=== PATIENT | female | born 1945 | race Caucasian/White ===

== ENCOUNTER 2022-03-11 11:21 | Outpatient (CLI) | payer MEDICARE, OTHER ==
[2022-03-11 13:25] LABS: Mean Corpuscular HGB CONC 31.7 g/dL (32.0-36.0); Mean Corpuscular Hemoglobin 32.3 pg (27.0-33.0); Mean Corpuscular Volume 101.6 fl (81.6-98.3); Mean Platelet Volume 9.1 fl (7.4-10.4); Platelet Count 287 10x3/uL (150-450); RBC Distribution Width 16.4 % (11.5-14.5); White Blood Cell (WBC) Count 10.1 10x3/uL (3.5-10.5)
[2022-03-11 13:56] LABS: Anion Gap 19 mmol/L (10-20); BUN (Urea Nitrogen) 60 mg/dL (9.8-20.1); Calc. Creatinine Clearance 0 mL/min (70-130); Calcium 9.9 mg/dL (7.8-10.44); Carbon Dioxide 29 mmol/L (23-31); Chloride 95 mmol/L (98-107); Estimated GFR 8; Glucose 135 mg/dL (83-110); Potassium 5.2 mmol/L (3.5-5.1); Sodium 138 mmol/L (136-145)
== END 2022-03-11 11:22 | disposition home or self-care (01) ==
LOC: LABBT 11:21
PROVIDERS: ATTEND Thoracic Surgery (Cardiothoracic Vascular Surgery)
DX: Z01.812 Encounter for preprocedural laboratory examination (principal); I73.9 Peripheral vascular disease, unspecified
CPT/HCPCS: 80048; 85027

== ENCOUNTER 2022-03-12 09:55 | Day surgery (SDC) | payer MEDICARE, OTHER ==
[2022-03-11 08:53] VITALS: BMI 29.0
[2022-03-12] MEDS ORDERED: Midazolam HCl 2 mg/2 ml Vial ONE (11:01)
[2022-03-12] MEDS ORDERED: Lidocaine 1% (PF) 30 ML VIAL ONE (11:02)
[2022-03-12] MEDS ORDERED: FENTANYL 50 MCG/ML 1 ML VIAL ONE (11:02)
[2022-03-12] MEDS ORDERED: Heparin 10,000 UNITS/ 10 ML VIAL ONE (11:10)
[2022-03-12] MEDS ORDERED: hydrALAZINE 20 MG/ML VIAL ONE (13:54)
== END 2022-03-12 16:43 | disposition home or self-care (01) ==
LOC: SDC 09:55
PROVIDERS: ATTEND Thoracic Surgery (Cardiothoracic Vascular Surgery)
PROC: 047K3Z1 Dilation of Right Femoral Artery using Drug-Coated Balloon, Percutaneous Approach (ICD-10-PCS; principal; 2022-03-12)
DX: E11.51 Type 2 diabetes mellitus with diabetic peripheral angiopathy without gangrene (principal); I13.2 Hypertensive heart and chronic kidney disease with heart failure and with stage 5 chronic kidney disease, or end stage renal disease; E11.22 Type 2 diabetes mellitus with diabetic chronic kidney disease; N18.6 End stage renal disease; I50.1 Left ventricular failure, unspecified; I25.10 Atherosclerotic heart disease of native coronary artery without angina pectoris; K21.9 Gastro-esophageal reflux disease without esophagitis; M10.9 Gout, unspecified; Z86.16 Personal history of COVID-19; Z87.891 Personal history of nicotine dependence; Z79.4 Long term (current) use of insulin; Z79.52 Long term (current) use of systemic steroids; Z79.82 Long term (current) use of aspirin; Z79.890 Hormone replacement therapy; Z79.899 Other long term (current) drug therapy; Z88.1 Allergy status to other antibiotic agents; Z88.8 Allergy status to other drugs, medicaments and biological substances; Z91.041 Radiographic dye allergy status; Z99.2 Dependence on renal dialysis
CPT/HCPCS: 36247; 36416; 37224; C1725; C1760; C1769; C1887; C1894; J0360; J1644; J2001; J2250; J3010

== ENCOUNTER 2022-03-20 11:07 | Inpatient (IN) | payer MEDICARE, OTHER ==
[2022-03-20] MEDS ORDERED: Heparin 10,000 UNITS/ 10 ML VIAL ONE (11:50)
[2022-03-20 13:54] LABS: #Basophils 0.1 thou/uL (0.0-0.2); #Eosinphils 0.1 thou/uL (0.0-0.7); #Lymphocytes 1.2 thou/uL (1.20-3.40); #Monocytes 1.5 thou/uL (0.11-0.59); #Neutrophils 13.6 thou/uL (1.40-6.50); %Basophils 0.4 % (0.0-1.0); %Eosinophils 0.8 % (0.0-10.0); %Lymphocytes 7.1 % (21.0-51.0); %Monocytes 9.2 % (0.0-10.0); %Neutrophils 82.4 % (42.0-75.0); Hemoglobin 9.8 g/dL (12.0-16.0); Mean Corpuscular HGB CONC 32.4 g/dL (32.0-36.0); Mean Corpuscular Hemoglobin 32.9 pg (27.0-31.0); Mean Platelet Volume 6.8 fL (7.4-10.4); Platelet Count 256 10x3/uL (130-400); Red Blood Cell (RBC) Count 2.98 mill/uL (4.20-5.40); White Blood Cell (WBC) Count 16.5 10x3/uL (4.8-10.8)
[2022-03-20 14:28] LABS: ALT (SGPT) 10 U/L (8-55); AST (SGOT) 12 U/L (5-34); Albumin 3.6 g/dL (3.4-4.8); Alkaline Phosphatase 91 U/L (40-110); Anion Gap 17 mmol/L (10-20); BUN (Urea Nitrogen) 57 mg/dL (9.8-20.1); Bilirubin, Total 0.6 mg/dL (0.2-1.2); Calc. Creatinine Clearance 0 mL/min (70-130); Calcium 9.4 mg/dL (7.8-10.44); Carbon Dioxide 27 mmol/L (23-31); Chloride 92 mmol/L (98-107); Estimated GFR 7; Globulin 3.5 g/dL (2.4-3.5); Glucose 231 mg/dL (83-110); Potassium 5.3 mmol/L (3.5-5.1); Protein, Total 7.1 g/dL (5.8-8.1); Sodium 131 mmol/L (136-145)
[2022-03-20 14:51] LABS: Bilirubin Negative (Negative); Blood, Urine Trace (Negative); Clarity Clear (Clear); Glucose, Urine (Dipstick) 150 mg/dL (Negative); Ketone, Urine Negative (Negative); Leukocyte Negative Leu/uL (Negative); Nitrite Negative (Negative); Protein, Urine (Dipstick) 300 mg/dL (Neg-Trace); Specific Gravity, Urine 1.016 (1.002-1.036); Squamous Epithelial None Seen HPF (0-3); Urobilinogen Normal mg/dL (Less than 2)
[2022-03-20 14:52] LABS: Bacteria/HPF 1+ HPF (None Seen)
[2022-03-20] MEDS ORDERED: Cefepime 2 GM VIAL ONE (16:06)
[2022-03-20] MEDS ORDERED: Ondansetron PF 4 MG/2 ML Vial IVP PRN (16:08)
[2022-03-20] MEDS ORDERED: Dextrose 50% Abboject 50 ML SYRINGE SLOW IVP PRN (16:08)
[2022-03-20] MEDS ORDERED: traMADol HCl 50 MG TAB PO PRN (16:08)
[2022-03-20] MEDS ORDERED: Dextrose 5% in Water 1,000 ML IV PRN (16:08)
[2022-03-20 16:20] LABS: HBSAB Concentration Less than 8.00 mIU/mL; HBSAg Index 0.28 S/CO (0-0.99); Hep B Core Total Ab Non-Reactive (NonReactive); Hep B Core Total Index 0.06 S/CO (0-0.79); Hep B Surf AB Non-Reactive (NonReactive); Hep B Surf Ag Non-Reactive S/CO (NonReactive); Hep C IgG Ab Non-Reactive (NonReactive); Hep C Index 0.05 S/CO (0-0.79)
[2022-03-20] MEDS: Carvedilol 6.25 MG TAB PO SCH (18:09)
[2022-03-20] MEDS: Calcium Acetate 667 MG CAP PO SCH (18:09)
[2022-03-20] MEDS ORDERED: Vancomycin Diaylsis Sliding Scale (Wt 71-99) FS SCH (18:30)
[2022-03-20] MEDS ORDERED: VANCOMYCIN 2 GRAM/500 ML BAG 2 GM in Premix Bag 1 BAG IVPB SCH (18:30)
[2022-03-20] MEDS: Gabapentin 400 MG CAP PO SCH (20:50)
[2022-03-20] MEDS ORDERED: Cefepime 1 GM in Sodium Chloride 0.9% 100 ML IVPB SCH (21:00)
[2022-03-20 21:10] VITALS: BMI 29.5
[2022-03-20] MEDS: Morphine 2 MG/ML VIAL SLOW IVP PRN (21:18)
[2022-03-21 04:29] LABS: #Basophils 0.1 thou/uL (0.0-0.2); #Eosinphils 0.2 thou/uL (0.0-0.7); #Lymphocytes 1.2 thou/uL (1.20-3.40); #Monocytes 1.2 thou/uL (0.11-0.59); #Neutrophils 9.5 thou/uL (1.40-6.50); %Basophils 0.5 % (0.0-1.0); %Eosinophils 1.7 % (0.0-10.0); %Lymphocytes 9.5 % (21.0-51.0); %Monocytes 9.6 % (0.0-10.0); %Neutrophils 78.7 % (42.0-75.0); Hemoglobin 9.8 g/dL (12.0-16.0); Mean Corpuscular HGB CONC 31.9 g/dL (32.0-36.0); Mean Corpuscular Hemoglobin 32.7 pg (27.0-31.0); Mean Platelet Volume 6.9 fL (7.4-10.4); Platelet Count 239 10x3/uL (130-400); RBC Distribution Width 14.9 % (11.5-14.5); Red Blood Cell (RBC) Count 3.01 mill/uL (4.20-5.40); White Blood Cell (WBC) Count 12.1 10x3/uL (4.8-10.8)
[2022-03-21 04:57] LABS: Anion Gap 14 mmol/L (10-20); BUN (Urea Nitrogen) 24 mg/dL (9.8-20.1); Calc. Creatinine Clearance 17 mL/min (70-130); Calcium 9.4 mg/dL (7.8-10.44); Carbon Dioxide 27 mmol/L (23-31); Chloride 97 mmol/L (98-107); Estimated GFR 12; Glucose 155 mg/dL (83-110); Potassium 4.4 mmol/L (3.5-5.1); Sodium 134 mmol/L (136-145)
[2022-03-21] MEDS: Levothyroxine Sodium 88 MCG TAB PO SCH (05:17)
[2022-03-21] MEDS: Morphine 2 MG/ML VIAL SLOW IVP PRN (09:11)
[2022-03-21] MEDS: Calcium Acetate 667 MG CAP PO SCH ×3 (09:18→18:25)
[2022-03-21] MEDS: Gabapentin 100 MG CAP PO SCH (09:19)
[2022-03-21] MEDS: Furosemide 80 MG TAB PO SCH (09:19)
[2022-03-21] MEDS: Carvedilol 6.25 MG TAB PO SCH ×2 (09:20→18:25)
[2022-03-21] MEDS: Aspirin 81 mg Enteric Coated Tablet PO SCH (09:21)
[2022-03-21] MEDS: Sertraline 25 MG TAB PO SCH (09:21)
[2022-03-21] MEDS ORDERED: oxyCODONE 5 MG TAB PO PRN (12:04)
[2022-03-21] MEDS: oxyCODONE 5 MG TAB PO PRN (12:37)
[2022-03-21] MEDS ORDERED: Non-Formulary Item 1 EACH (Tizanidine Hcl [Tizanidine Hcl] 2 MG Tablet) PO SCH (14:00)
[2022-03-21] MEDS: tiZANidine HCl 4 MG TAB PO SCH ×2 (15:25→21:20)
[2022-03-21] MEDS: traMADol HCl 50 MG TAB PO SCH (21:19)
[2022-03-21] MEDS: Gabapentin 400 MG CAP PO SCH (21:20)
[2022-03-21] MEDS: Cefepime 0.5 GM, Admixture Fee 1 EACH in Sodium Chloride 0.9% 100 ML IVPB SCH (21:23)
[2022-03-22] MEDS: Levothyroxine Sodium 88 MCG TAB PO SCH (05:37)
[2022-03-22] MEDS: tiZANidine HCl 4 MG TAB PO SCH ×3 (05:37→21:40)
[2022-03-22] MEDS: HumaLOG 300 UNITS/3 ML VIAL SC PRN (05:53)
[2022-03-22] MEDS: Gabapentin 100 MG CAP PO SCH (08:59)
[2022-03-22] MEDS: Furosemide 80 MG TAB PO SCH (08:59)
[2022-03-22] MEDS: Calcium Acetate 667 MG CAP PO SCH ×3 (08:59→17:13)
[2022-03-22] MEDS: Sertraline 25 MG TAB PO SCH (09:00)
[2022-03-22] MEDS: Carvedilol 6.25 MG TAB PO SCH ×2 (09:01→17:15)
[2022-03-22] MEDS: Aspirin 81 mg Enteric Coated Tablet PO SCH (09:01)
[2022-03-22] MEDS: traMADol HCl 50 MG TAB PO SCH ×2 (09:05→21:38)
[2022-03-22] MEDS: oxyCODONE 5 MG TAB PO PRN (16:34)
[2022-03-22] MEDS: Cefepime 0.5 GM, Admixture Fee 1 EACH in Sodium Chloride 0.9% 100 ML IVPB SCH (21:37)
[2022-03-22] MEDS: EPOETIN ALFA-EPBX (ESRD) 10,000 UNIT/ML VIAL SC SCH (21:40)
[2022-03-22] MEDS: Gabapentin 400 MG CAP PO SCH (21:40)
[2022-03-23] MEDS: oxyCODONE 5 MG TAB PO PRN ×2 (00:50→15:28)
[2022-03-23] MEDS: Acetaminophen 325 MG TAB PO PRN (03:49)
[2022-03-23] MEDS: tiZANidine HCl 4 MG TAB PO SCH ×3 (06:45→21:50)
[2022-03-23] MEDS: Levothyroxine Sodium 88 MCG TAB PO SCH (06:45)
[2022-03-23 07:09] LABS: #Basophils 0.1 thou/uL (0.0-0.2); #Eosinphils 0.3 thou/uL (0.0-0.7); #Lymphocytes 1.3 thou/uL (1.20-3.40); #Monocytes 0.8 thou/uL (0.11-0.59); %Basophils 0.7 % (0.0-1.0); %Eosinophils 2.9 % (0.0-10.0); %Lymphocytes 13.9 % (21.0-51.0); %Neutrophils 74.5 % (42.0-75.0); Hemoglobin 9.5 g/dL (12.0-16.0); Mean Corpuscular HGB CONC 31.5 g/dL (32.0-36.0); Mean Corpuscular Hemoglobin 32.8 pg (27.0-31.0); Mean Platelet Volume 6.5 fL (7.4-10.4); Platelet Count 252 10x3/uL (130-400); RBC Distribution Width 14.4 % (11.5-14.5); White Blood Cell (WBC) Count 9.4 10x3/uL (4.8-10.8)
[2022-03-23 07:27] LABS: Anion Gap 18 mmol/L (10-20); BUN (Urea Nitrogen) 35 mg/dL (9.8-20.1); Calc. Creatinine Clearance 13 mL/min (70-130); Carbon Dioxide 23 mmol/L (23-31); Chloride 98 mmol/L (98-107); Potassium 4.6 mmol/L (3.5-5.1); Sodium 134 mmol/L (136-145)
[2022-03-23 07:28] LABS: Calcium 9.6 mg/dL (7.8-10.44); Estimated GFR 9; Glucose 151 mg/dL (83-110)
[2022-03-23] MEDS: traMADol HCl 50 MG TAB PO SCH ×2 (09:12→20:08)
[2022-03-23] MEDS ORDERED: Heparin 10,000 UNITS/ 10 ML VIAL ONE (10:08)
[2022-03-23] MEDS: Calcium Acetate 667 MG CAP PO SCH ×3 (15:05→17:45)
[2022-03-23] MEDS: Aspirin 81 mg Enteric Coated Tablet PO SCH (15:06)
[2022-03-23] MEDS: Sertraline 25 MG TAB PO SCH (15:06)
[2022-03-23] MEDS: Carvedilol 6.25 MG TAB PO SCH ×2 (15:06→17:45)
[2022-03-23] MEDS: Gabapentin 100 MG CAP PO SCH (15:06)
[2022-03-23] MEDS ORDERED: Vancomycin HCl 750 MG in Sodium Chloride 0.9% 250 ML 250 ML IVPB SCH (17:00)
[2022-03-23] MEDS: Gabapentin 400 MG CAP PO SCH (20:08)
[2022-03-23] MEDS: Cefepime 0.5 GM, Admixture Fee 1 EACH in Sodium Chloride 0.9% 100 ML IVPB SCH (21:46)
[2022-03-24] MEDS ORDERED: Polyethylene Glycol 3350 17 GM Packet PO SCH (00:15)
[2022-03-24] MEDS: oxyCODONE 5 MG TAB PO PRN ×2 (00:53→07:30)
[2022-03-24] MEDS: tiZANidine HCl 4 MG TAB PO SCH ×3 (05:38→21:11)
[2022-03-24] MEDS: Levothyroxine Sodium 88 MCG TAB PO SCH (05:38)
[2022-03-24] MEDS: Polyethylene Glycol 3350 17 GM Packet PO SCH (07:29)
[2022-03-24] MEDS: Calcium Acetate 667 MG CAP PO SCH ×3 (07:29→17:24)
[2022-03-24] MEDS: Carvedilol 6.25 MG TAB PO SCH ×2 (07:29→17:24)
[2022-03-24] MEDS: Aspirin 81 mg Enteric Coated Tablet PO SCH (07:30)
[2022-03-24] MEDS: Sertraline 25 MG TAB PO SCH (07:37)
[2022-03-24] MEDS: Gabapentin 100 MG CAP PO SCH (07:37)
[2022-03-24] MEDS: Furosemide 80 MG TAB PO SCH (07:38)
[2022-03-24 08:28] LABS: #Basophils 0.1 thou/uL (0.0-0.2); #Eosinphils 0.3 thou/uL (0.0-0.7); #Lymphocytes 1.2 thou/uL (1.20-3.40); #Monocytes 0.9 thou/uL (0.11-0.59); #Neutrophils 8.5 thou/uL (1.40-6.50); %Basophils 0.9 % (0.0-1.0); %Monocytes 8.4 % (0.0-10.0); %Neutrophils 76.8 % (42.0-75.0); Hemoglobin 9.6 g/dL (12.0-16.0); Mean Corpuscular HGB CONC 32.4 g/dL (32.0-36.0); Mean Corpuscular Hemoglobin 32.8 pg (27.0-31.0); Mean Platelet Volume 6.8 fL (7.4-10.4); Platelet Count 270 10x3/uL (130-400); RBC Distribution Width 14.5 % (11.5-14.5); Red Blood Cell (RBC) Count 2.92 mill/uL (4.20-5.40); White Blood Cell (WBC) Count 11.1 10x3/uL (4.8-10.8)
[2022-03-24 08:36] LABS: Anion Gap 16 mmol/L (10-20); BUN (Urea Nitrogen) 28 mg/dL (9.8-20.1); Calc. Creatinine Clearance 15 mL/min (70-130); Calcium 9.6 mg/dL (7.8-10.44); Carbon Dioxide 27 mmol/L (23-31); Chloride 95 mmol/L (98-107); Estimated GFR 11; Glucose 158 mg/dL (83-110); Potassium 4.2 mmol/L (3.5-5.1); Sodium 134 mmol/L (136-145)
[2022-03-24] MEDS: traMADol HCl 50 MG TAB PO SCH ×2 (09:14→21:09)
[2022-03-24] MEDS: Morphine 2 MG/ML VIAL SLOW IVP PRN (13:00)
[2022-03-24 17:13] LABS: #Basophils 0.1 thou/uL (0.0-0.2); #Eosinphils 0.2 thou/uL (0.0-0.7); #Lymphocytes 1.1 thou/uL (1.20-3.40); #Monocytes 0.7 thou/uL (0.11-0.59); #Neutrophils 7.4 thou/uL (1.40-6.50); %Eosinophils 2.5 % (0.0-10.0); %Lymphocytes 11.3 % (21.0-51.0); %Monocytes 7.3 % (0.0-10.0); %Neutrophils 77.9 % (42.0-75.0); Hemoglobin 10.2 g/dL (12.0-16.0); Mean Corpuscular HGB CONC 32.3 g/dL (32.0-36.0); Mean Corpuscular Hemoglobin 32.9 pg (27.0-31.0); Mean Platelet Volume 6.6 fL (7.4-10.4); Platelet Count 268 10x3/uL (130-400); RBC Distribution Width 14.4 % (11.5-14.5); Red Blood Cell (RBC) Count 3.11 mill/uL (4.20-5.40); White Blood Cell (WBC) Count 9.5 10x3/uL (4.8-10.8)
[2022-03-24 17:32] LABS: Anion Gap 15 mmol/L (10-20); BUN (Urea Nitrogen) 31 mg/dL (9.8-20.1); Calc. Creatinine Clearance 13 mL/min (70-130); Calcium 9.8 mg/dL (7.8-10.44); Carbon Dioxide 27 mmol/L (23-31); Chloride 92 mmol/L (98-107); Estimated GFR 9; Glucose 247 mg/dL (83-110); Potassium 4.4 mmol/L (3.5-5.1); Sodium 130 mmol/L (136-145)
[2022-03-24] MEDS: Gabapentin 400 MG CAP PO SCH (21:10)
[2022-03-24] MEDS: Cefepime 0.5 GM, Admixture Fee 1 EACH in Sodium Chloride 0.9% 100 ML IVPB SCH (21:13)
[2022-03-25] MEDS: oxyCODONE 5 MG TAB PO PRN (00:37)
[2022-03-25] MEDS: Levothyroxine Sodium 88 MCG TAB PO SCH (06:26)
[2022-03-25] MEDS: tiZANidine HCl 4 MG TAB PO SCH ×3 (06:26→20:40)
[2022-03-25 07:04] LABS: #Basophils 0.1 thou/uL (0.0-0.2); #Eosinphils 0.3 thou/uL (0.0-0.7); #Lymphocytes 1.3 thou/uL (1.20-3.40); #Monocytes 0.7 thou/uL (0.11-0.59); #Neutrophils 8.2 thou/uL (1.40-6.50); %Basophils 0.7 % (0.0-1.0); %Eosinophils 3.1 % (0.0-10.0); %Lymphocytes 12.4 % (21.0-51.0); %Neutrophils 76.8 % (42.0-75.0); Mean Corpuscular HGB CONC 32.5 g/dL (32.0-36.0); Mean Corpuscular Hemoglobin 33.1 pg (27.0-31.0); Mean Platelet Volume 6.6 fL (7.4-10.4); Platelet Count 282 10x3/uL (130-400); RBC Distribution Width 14.4 % (11.5-14.5); Red Blood Cell (RBC) Count 3.04 mill/uL (4.20-5.40); White Blood Cell (WBC) Count 10.6 10x3/uL (4.8-10.8)
[2022-03-25 07:19] LABS: Vancomycin, Random 13.7 ug/mL (See Comment)
[2022-03-25 07:21] LABS: Anion Gap 16 mmol/L (10-20); BUN (Urea Nitrogen) 38 mg/dL (9.8-20.1); Calc. Creatinine Clearance 12 mL/min (70-130); Calcium 9.6 mg/dL (7.8-10.44); Carbon Dioxide 26 mmol/L (23-31); Chloride 92 mmol/L (98-107); Estimated GFR 8; Glucose 155 mg/dL (83-110); Potassium 4.4 mmol/L (3.5-5.1); Sodium 130 mmol/L (136-145)
[2022-03-25] MEDS: Carvedilol 6.25 MG TAB PO SCH ×2 (08:10→18:02)
[2022-03-25] MEDS ORDERED: Heparin 10,000 UNITS/ 10 ML VIAL ONE (13:56)
[2022-03-25] MEDS: Polyethylene Glycol 3350 17 GM Packet PO SCH (14:11)
[2022-03-25] MEDS: Calcium Acetate 667 MG CAP PO SCH ×3 (14:11→18:03)
[2022-03-25] MEDS: Gabapentin 100 MG CAP PO SCH (14:12)
[2022-03-25] MEDS: traMADol HCl 50 MG TAB PO SCH ×2 (14:12→20:41)
[2022-03-25] MEDS: Aspirin 81 mg Enteric Coated Tablet PO SCH (14:12)
[2022-03-25] MEDS: Sertraline 25 MG TAB PO SCH (14:13)
[2022-03-25] MEDS: Gabapentin 400 MG CAP PO SCH (20:41)
[2022-03-25] MEDS: Cefepime 0.5 GM, Admixture Fee 1 EACH in Sodium Chloride 0.9% 100 ML IVPB SCH (21:15)
[2022-03-26] MEDS: oxyCODONE 5 MG TAB PO PRN ×2 (01:16→12:47)
[2022-03-26] MEDS: Levothyroxine Sodium 88 MCG TAB PO SCH (05:56)
[2022-03-26] MEDS: tiZANidine HCl 4 MG TAB PO SCH ×3 (05:56→21:07)
[2022-03-26] MEDS: Carvedilol 6.25 MG TAB PO SCH ×2 (08:25→18:21)
[2022-03-26] MEDS: Calcium Acetate 667 MG CAP PO SCH ×3 (08:25→18:20)
[2022-03-26] MEDS: traMADol HCl 50 MG TAB PO SCH ×2 (08:26→20:52)
[2022-03-26] MEDS: Sertraline 25 MG TAB PO SCH (08:26)
[2022-03-26] MEDS: Furosemide 80 MG TAB PO SCH (08:27)
[2022-03-26] MEDS: Aspirin 81 mg Enteric Coated Tablet PO SCH (08:27)
[2022-03-26] MEDS: Gabapentin 100 MG CAP PO SCH (08:27)
[2022-03-26] MEDS: Polyethylene Glycol 3350 17 GM Packet PO SCH (08:28)
[2022-03-26] MEDS: Cefepime 0.5 GM, Admixture Fee 1 EACH in Sodium Chloride 0.9% 100 ML IVPB SCH (20:51)
[2022-03-26] MEDS: Gabapentin 400 MG CAP PO SCH (20:51)
[2022-03-27] MEDS: oxyCODONE 5 MG TAB PO PRN ×3 (00:07→18:04)
[2022-03-27] MEDS: Acetaminophen 325 MG TAB PO PRN (05:27)
[2022-03-27] MEDS: Levothyroxine Sodium 88 MCG TAB PO SCH (05:28)
[2022-03-27] MEDS: tiZANidine HCl 4 MG TAB PO SCH ×3 (05:28→21:00)
[2022-03-27] MEDS: traMADol HCl 50 MG TAB PO SCH ×2 (08:25→20:59)
[2022-03-27] MEDS: Gabapentin 100 MG CAP PO SCH (08:35)
[2022-03-27] MEDS: Aspirin 81 mg Enteric Coated Tablet PO SCH (08:35)
[2022-03-27] MEDS: Polyethylene Glycol 3350 17 GM Packet PO SCH (08:35)
[2022-03-27] MEDS: Carvedilol 6.25 MG TAB PO SCH ×2 (08:35→17:14)
[2022-03-27] MEDS: Calcium Acetate 667 MG CAP PO SCH ×3 (08:35→17:13)
[2022-03-27] MEDS: Sertraline 25 MG TAB PO SCH (08:36)
[2022-03-27] MEDS ORDERED: Heparin 10,000 UNITS/ 10 ML VIAL ONE (13:45)
[2022-03-27] MEDS: Gabapentin 400 MG CAP PO SCH (20:59)
[2022-03-27] MEDS: Cefepime 0.5 GM, Admixture Fee 1 EACH in Sodium Chloride 0.9% 100 ML IVPB SCH (20:59)
[2022-03-27] MEDS: HumaLOG 300 UNITS/3 ML VIAL SC PRN (21:23)
[2022-03-28] MEDS: oxyCODONE 5 MG TAB PO PRN (01:05)
[2022-03-28] MEDS: Levothyroxine Sodium 88 MCG TAB PO SCH (05:10)
[2022-03-28] MEDS: tiZANidine HCl 4 MG TAB PO SCH ×3 (05:10→22:35)
[2022-03-28] MEDS: HumaLOG 300 UNITS/3 ML VIAL SC PRN (06:16)
[2022-03-28] MEDS: Calcium Acetate 667 MG CAP PO SCH ×3 (08:47→16:48)
[2022-03-28] MEDS: Polyethylene Glycol 3350 17 GM Packet PO SCH (08:47)
[2022-03-28] MEDS: Carvedilol 6.25 MG TAB PO SCH ×2 (08:47→16:48)
[2022-03-28] MEDS: Aspirin 81 mg Enteric Coated Tablet PO SCH (08:47)
[2022-03-28] MEDS: Sertraline 25 MG TAB PO SCH (08:48)
[2022-03-28] MEDS: Gabapentin 100 MG CAP PO SCH (08:48)
[2022-03-28] MEDS: Furosemide 80 MG TAB PO SCH (08:49)
[2022-03-28] MEDS: traMADol HCl 50 MG TAB PO SCH ×3 (08:50→20:18)
[2022-03-28] MEDS ORDERED: Heparin 10,000 UNITS/ 10 ML VIAL ONE (13:43)
[2022-03-28] MEDS: Gabapentin 400 MG CAP PO SCH (20:19)
[2022-03-28] MEDS: Cefepime 0.5 GM, Admixture Fee 1 EACH in Sodium Chloride 0.9% 100 ML IVPB SCH (21:53)
[2022-03-29] MEDS: diphenhydrAMINE 30 GM TUBE TOP PRN ×2 (00:06→06:03)
[2022-03-29] MEDS: oxyCODONE 5 MG TAB PO PRN (00:12)
[2022-03-29] MEDS: tiZANidine HCl 4 MG TAB PO SCH ×3 (05:32→21:36)
[2022-03-29] MEDS: Levothyroxine Sodium 88 MCG TAB PO SCH (06:02)
[2022-03-29] MEDS: Calcium Acetate 667 MG CAP PO SCH ×3 (10:23→17:43)
[2022-03-29] MEDS: Sertraline 25 MG TAB PO SCH (10:23)
[2022-03-29] MEDS: Carvedilol 6.25 MG TAB PO SCH ×2 (10:24→17:43)
[2022-03-29] MEDS: traMADol HCl 50 MG TAB PO SCH (10:24)
[2022-03-29] MEDS: Aspirin 81 mg Enteric Coated Tablet PO SCH (10:24)
[2022-03-29] MEDS: Gabapentin 100 MG CAP PO SCH (10:25)
[2022-03-29] MEDS: Polyethylene Glycol 3350 17 GM Packet PO SCH (10:26)
[2022-03-29] MEDS: Furosemide 80 MG TAB PO SCH (10:35)
[2022-03-29] MEDS: HumaLOG 300 UNITS/3 ML VIAL SC PRN ×2 (15:12→17:45)
[2022-03-29] MEDS: Acetaminophen 325 MG TAB PO PRN (17:48)
[2022-03-29] MEDS: Gabapentin 400 MG CAP PO SCH (21:33)
[2022-03-29] MEDS: EPOETIN ALFA-EPBX (ESRD) 10,000 UNIT/ML VIAL SC SCH (21:37)
[2022-03-29] MEDS: Cefepime 0.5 GM, Admixture Fee 1 EACH in Sodium Chloride 0.9% 100 ML IVPB SCH (21:39)
[2022-03-29] MEDS: Senokot 8.6 MG TAB PO SCH (21:41)
[2022-03-30] MEDS: oxyCODONE 5 MG TAB PO PRN ×3 (01:04→20:36)
[2022-03-30] MEDS: diphenhydrAMINE 30 GM TUBE TOP PRN ×2 (01:04→16:41)
[2022-03-30] MEDS: Levothyroxine Sodium 88 MCG TAB PO SCH (06:14)
[2022-03-30] MEDS: tiZANidine HCl 4 MG TAB PO SCH ×3 (06:14→20:02)
[2022-03-30] MEDS: Carvedilol 6.25 MG TAB PO SCH ×2 (07:56→16:46)
[2022-03-30] MEDS: traMADol HCl 50 MG TAB PO SCH (07:57)
[2022-03-30] MEDS: Gabapentin 100 MG CAP PO SCH (07:58)
[2022-03-30] MEDS: Polyethylene Glycol 3350 17 GM Packet PO SCH (07:59)
[2022-03-30] MEDS: Aspirin 81 mg Enteric Coated Tablet PO SCH (07:59)
[2022-03-30] MEDS: Sertraline 25 MG TAB PO SCH (07:59)
[2022-03-30] MEDS: Calcium Acetate 667 MG CAP PO SCH ×3 (08:13→16:42)
[2022-03-30] MEDS ORDERED: Heparin 10,000 UNITS/ 10 ML VIAL ONE (08:28)
[2022-03-30] MEDS ORDERED: predniSONE 50 MG TAB PO SCH (19:00)
[2022-03-30] MEDS: HumaLOG 300 UNITS/3 ML VIAL SC PRN (19:12)
[2022-03-30] MEDS: Senokot 8.6 MG TAB PO SCH (19:57)
[2022-03-30] MEDS: Cefepime 0.5 GM, Admixture Fee 1 EACH in Sodium Chloride 0.9% 100 ML IVPB SCH (20:02)
[2022-03-30] MEDS: Gabapentin 400 MG CAP PO SCH (20:02)
[2022-03-31] MEDS ORDERED: predniSONE 50 MG TAB PO SCH ×2 (01:00→07:00)
[2022-03-31] MEDS: tiZANidine HCl 4 MG TAB PO SCH ×3 (06:03→20:36)
[2022-03-31] MEDS: Levothyroxine Sodium 88 MCG TAB PO SCH (06:03)
[2022-03-31] MEDS ORDERED: diphenhydrAMINE 25 MG CAP PO SCH (07:00)
[2022-03-31] MEDS ORDERED: EPINEPHrine 1 MG/ML AMP ONE (07:55)
[2022-03-31] MEDS ORDERED: diphenhydrAMINE 50 MG/ML VIAL ONE (07:56)
[2022-03-31] MEDS ORDERED: methylPREDNISolone Sod Succ/PF 125 MG/2 ML VIAL ONE (07:56)
[2022-03-31] MEDS: Gabapentin 100 MG CAP PO SCH (09:33)
[2022-03-31] MEDS: Calcium Acetate 667 MG CAP PO SCH ×4 (09:33→18:40)
[2022-03-31] MEDS: Carvedilol 6.25 MG TAB PO SCH ×2 (09:33→18:39)
[2022-03-31] MEDS: Aspirin 81 mg Enteric Coated Tablet PO SCH (09:34)
[2022-03-31] MEDS: Sertraline 25 MG TAB PO SCH (09:34)
[2022-03-31] MEDS: traMADol HCl 50 MG TAB PO SCH (09:34)
[2022-03-31] MEDS: Polyethylene Glycol 3350 17 GM Packet PO SCH (09:35)
[2022-03-31] MEDS: Furosemide 80 MG TAB PO SCH (09:38)
[2022-03-31] MEDS ORDERED: Iopamidol 300 61% 100 ML VIAL FS ONE (10:02)
[2022-03-31] MEDS: Senokot 8.6 MG TAB PO SCH (20:36)
[2022-03-31] MEDS: Gabapentin 400 MG CAP PO SCH (20:36)
[2022-03-31] MEDS: Cefepime 0.5 GM, Admixture Fee 1 EACH in Sodium Chloride 0.9% 100 ML IVPB SCH (20:36)
[2022-03-31] MEDS: oxyCODONE 5 MG TAB PO PRN (21:18)
[2022-03-31] MEDS: HumaLOG 300 UNITS/3 ML VIAL SC PRN (22:48)
[2022-04-01] MEDS: tiZANidine HCl 4 MG TAB PO SCH ×3 (05:15→20:05)
[2022-04-01] MEDS: Levothyroxine Sodium 88 MCG TAB PO SCH (05:15)
[2022-04-01] MEDS: Carvedilol 6.25 MG TAB PO SCH ×2 (05:23→18:29)
[2022-04-01 05:57] LABS: Anion Gap 16 mmol/L (10-20); BUN (Urea Nitrogen) 55 mg/dL (9.8-20.1); Calc. Creatinine Clearance 14 mL/min (70-130); Carbon Dioxide 25 mmol/L (23-31); Chloride 93 mmol/L (98-107); Estimated GFR 10; Glucose 207 mg/dL (83-110); Potassium 4.5 mmol/L (3.5-5.1); Sodium 129 mmol/L (136-145)
[2022-04-01] MEDS ORDERED: fentaNYL PF 100 MCG/2 ML SYRINGE ONE (06:45)
[2022-04-01] MEDS ORDERED: Propofol 500 MG/50 ML VIAL ONE ×2 (06:46→06:47)
[2022-04-01] MEDS ORDERED: Heparin 5,000 UNITS/ML VIAL ONE (06:54)
[2022-04-01] MEDS ORDERED: Protamine Sulfate 50 MG/5 ML VIAL ONE (06:54)
[2022-04-01] MEDS ORDERED: Heparin 10,000 UNITS/ 10 ML VIAL ONE ×2 (06:54→08:47)
[2022-04-01] MEDS ORDERED: Bupivacaine/Epinephrine 0.25% 30 ML VIAL ONE (06:54)
[2022-04-01] MEDS ORDERED: Lidocaine 1% (PF) 30 ML VIAL ONE (06:54)
[2022-04-01] MEDS ORDERED: CEFAZOLIN 2 GM VIAL ONE (07:32)
[2022-04-01] MEDS ORDERED: Sodium Chloride 0.9% 100 ML ONE (07:32)
[2022-04-01] MEDS ORDERED: Bupivacaine PF 0.5% 30 ML VIAL ONE (07:56)
[2022-04-01] MEDS ORDERED: PHENYLEPHRINE-NS 100 MCG/ML 10 ML SYRINGE ONE (07:59)
[2022-04-01] MEDS ORDERED: Ondansetron HCl/PF 4 MG/2 ML Vial IVP PRN (10:05)
[2022-04-01] MEDS: Aspirin 81 mg Enteric Coated Tablet PO SCH (10:43)
[2022-04-01] MEDS: Calcium Acetate 667 MG CAP PO SCH ×3 (10:43→18:29)
[2022-04-01] MEDS: Polyethylene Glycol 3350 17 GM Packet PO SCH (11:00)
[2022-04-01] MEDS: Sertraline 25 MG TAB PO SCH (11:00)
[2022-04-01] MEDS: Gabapentin 100 MG CAP PO SCH (11:00)
[2022-04-01] MEDS: traMADol HCl 50 MG TAB PO SCH (11:01)
[2022-04-01] MEDS ORDERED: traMADol HCl 50 MG TAB PO SCH (14:45)
[2022-04-01] MEDS: Gabapentin 400 MG CAP PO SCH (20:05)
[2022-04-01] MEDS: Senokot 8.6 MG TAB PO SCH (20:05)
[2022-04-01] MEDS: oxyCODONE 5 MG TAB PO PRN (22:08)
[2022-04-01] MEDS: Ipratropium/Albuterol 3 ML NEB NEB PRN (23:07)
[2022-04-02] MEDS: Melatonin 3 MG TAB PO PRN ×2 (00:30→21:45)
[2022-04-02] MEDS: Levothyroxine Sodium 88 MCG TAB PO SCH (05:34)
[2022-04-02] MEDS: tiZANidine HCl 4 MG TAB PO SCH ×3 (05:34→21:46)
[2022-04-02] MEDS: Calcium Acetate 667 MG CAP PO SCH ×3 (09:17→15:22)
[2022-04-02] MEDS: Aspirin 81 mg Enteric Coated Tablet PO SCH (09:17)
[2022-04-02] MEDS: Carvedilol 6.25 MG TAB PO SCH ×2 (09:17→15:23)
[2022-04-02] MEDS: Sertraline 25 MG TAB PO SCH (09:18)
[2022-04-02] MEDS: Polyethylene Glycol 3350 17 GM Packet PO SCH (09:19)
[2022-04-02] MEDS: Gabapentin 100 MG CAP PO SCH (09:19)
[2022-04-02] MEDS: traMADol HCl 50 MG TAB PO SCH (09:20)
[2022-04-02] MEDS: oxyCODONE 5 MG TAB PO PRN (12:30)
[2022-04-02] MEDS: Furosemide 80 MG TAB PO SCH (12:31)
[2022-04-02 16:47] LABS: #Basophils 0.1 thou/uL (0.0-0.2); #Eosinphils 0.3 thou/uL (0.0-0.7); #Lymphocytes 1.1 thou/uL (1.20-3.40); #Monocytes 0.8 thou/uL (0.11-0.59); #Neutrophils 10.6 thou/uL (1.40-6.50); %Basophils 0.4 % (0.0-1.0); %Lymphocytes 8.9 % (21.0-51.0); %Monocytes 6.3 % (0.0-10.0); %Neutrophils 82.4 % (42.0-75.0); Hemoglobin 8.4 g/dL (12.0-16.0); Mean Corpuscular HGB CONC 31.9 g/dL (32.0-36.0); Mean Corpuscular Hemoglobin 32.5 pg (27.0-31.0); Mean Platelet Volume 6.5 fL (7.4-10.4); Platelet Count 251 10x3/uL (130-400); RBC Distribution Width 14.9 % (11.5-14.5); Red Blood Cell (RBC) Count 2.58 mill/uL (4.20-5.40); White Blood Cell (WBC) Count 12.9 10x3/uL (4.8-10.8)
[2022-04-02] MEDS: HumaLOG 300 UNITS/3 ML VIAL SC PRN (18:27)
[2022-04-02] MEDS: Senokot 8.6 MG TAB PO SCH (21:45)
[2022-04-02] MEDS: Gabapentin 400 MG CAP PO SCH (21:46)
[2022-04-03] MEDS: oxyCODONE 5 MG TAB PO PRN (03:40)
[2022-04-03] MEDS: Levothyroxine Sodium 88 MCG TAB PO SCH (06:40)
[2022-04-03] MEDS: tiZANidine HCl 4 MG TAB PO SCH ×3 (06:40→21:22)
[2022-04-03] MEDS ORDERED: Heparin 10,000 UNITS/ 10 ML VIAL ONE (10:16)
[2022-04-03] MEDS: Calcium Acetate 667 MG CAP PO SCH ×3 (13:04→16:33)
[2022-04-03] MEDS: traMADol HCl 50 MG TAB PO SCH (13:44)
[2022-04-03] MEDS: Acetaminophen 325 MG TAB PO PRN (13:48)
[2022-04-03] MEDS: Sertraline 25 MG TAB PO SCH (13:49)
[2022-04-03] MEDS: Carvedilol 6.25 MG TAB PO SCH ×2 (13:49→16:33)
[2022-04-03] MEDS: Gabapentin 100 MG CAP PO SCH (13:50)
[2022-04-03] MEDS: Aspirin 81 mg Enteric Coated Tablet PO SCH (13:50)
[2022-04-03] MEDS: Polyethylene Glycol 3350 17 GM Packet PO SCH (13:52)
[2022-04-03] MEDS: Gabapentin 400 MG CAP PO SCH (21:21)
[2022-04-03] MEDS: Senokot 8.6 MG TAB PO SCH (21:22)
[2022-04-03] MEDS: HumaLOG 300 UNITS/3 ML VIAL SC PRN (21:25)
[2022-04-04] MEDS: oxyCODONE 5 MG TAB PO PRN (00:48)
[2022-04-04] MEDS: tiZANidine HCl 4 MG TAB PO SCH ×3 (06:02→22:20)
[2022-04-04] MEDS: Levothyroxine Sodium 88 MCG TAB PO SCH (06:03)
[2022-04-04] MEDS: diphenhydrAMINE 30 GM TUBE TOP PRN (06:06)
[2022-04-04] MEDS: Sertraline 25 MG TAB PO SCH (09:18)
[2022-04-04] MEDS: traMADol HCl 50 MG TAB PO SCH (09:18)
[2022-04-04] MEDS: Carvedilol 6.25 MG TAB PO SCH ×2 (09:20→16:59)
[2022-04-04] MEDS: Calcium Acetate 667 MG CAP PO SCH ×3 (09:21→16:59)
[2022-04-04] MEDS: Gabapentin 100 MG CAP PO SCH (09:21)
[2022-04-04] MEDS: Aspirin 81 mg Enteric Coated Tablet PO SCH (09:22)
[2022-04-04] MEDS: Polyethylene Glycol 3350 17 GM Packet PO SCH (09:22)
[2022-04-04] MEDS: Furosemide 80 MG TAB PO SCH (09:25)
[2022-04-04] MEDS ORDERED: Heparin 10,000 UNITS/ 10 ML VIAL ONE (10:12)
[2022-04-04] MEDS: HumaLOG 300 UNITS/3 ML VIAL SC PRN (12:24)
[2022-04-04] MEDS: Senokot 8.6 MG TAB PO SCH (22:20)
[2022-04-04] MEDS: Gabapentin 400 MG CAP PO SCH (22:20)
[2022-04-05] MEDS: oxyCODONE 5 MG TAB PO PRN ×2 (02:15→13:01)
[2022-04-05] MEDS: tiZANidine HCl 4 MG TAB PO SCH ×3 (05:33→21:13)
[2022-04-05] MEDS: Levothyroxine Sodium 88 MCG TAB PO SCH (05:33)
[2022-04-05] MEDS: HumaLOG 300 UNITS/3 ML VIAL SC PRN ×3 (05:38→17:39)
[2022-04-05] MEDS: Polyethylene Glycol 3350 17 GM Packet PO SCH (08:14)
[2022-04-05] MEDS: Gabapentin 100 MG CAP PO SCH (08:15)
[2022-04-05] MEDS: traMADol HCl 50 MG TAB PO SCH (08:16)
[2022-04-05] MEDS: Calcium Acetate 667 MG CAP PO SCH ×3 (08:16→17:32)
[2022-04-05] MEDS: Sertraline 25 MG TAB PO SCH (08:17)
[2022-04-05] MEDS: Aspirin 81 mg Enteric Coated Tablet PO SCH (08:17)
[2022-04-05] MEDS: Furosemide 80 MG TAB PO SCH (08:17)
[2022-04-05] MEDS: Carvedilol 6.25 MG TAB PO SCH ×2 (08:17→17:32)
[2022-04-05] MEDS: EPOETIN ALFA-EPBX (ESRD) 10,000 UNIT/ML VIAL SC SCH (21:12)
[2022-04-05] MEDS: Gabapentin 400 MG CAP PO SCH (21:13)
[2022-04-05] MEDS: Senokot 8.6 MG TAB PO SCH (21:13)
[2022-04-06] MEDS: tiZANidine HCl 4 MG TAB PO SCH ×3 (06:08→20:29)
[2022-04-06] MEDS: Levothyroxine Sodium 88 MCG TAB PO SCH (06:08)
[2022-04-06] MEDS: Acetaminophen 325 MG TAB PO PRN (06:14)
[2022-04-06] MEDS ORDERED: Heparin 10,000 UNITS/ 10 ML VIAL ONE (08:24)
[2022-04-06] MEDS: Carvedilol 6.25 MG TAB PO SCH ×2 (09:12→18:07)
[2022-04-06] MEDS: Calcium Acetate 667 MG CAP PO SCH ×3 (09:12→18:07)
[2022-04-06] MEDS: traMADol HCl 50 MG TAB PO SCH (09:12)
[2022-04-06 09:58] LABS: #Basophils 0.1 thou/uL (0.0-0.2); #Eosinphils 0.3 thou/uL (0.0-0.7); #Lymphocytes 1.4 thou/uL (1.20-3.40); #Monocytes 0.8 thou/uL (0.11-0.59); #Neutrophils 8.8 thou/uL (1.40-6.50); %Basophils 0.8 % (0.0-1.0); %Eosinophils 2.5 % (0.0-10.0); %Lymphocytes 12.4 % (21.0-51.0); %Neutrophils 77.3 % (42.0-75.0); Mean Corpuscular HGB CONC 31.9 g/dL (32.0-36.0); Mean Corpuscular Hemoglobin 32.7 pg (27.0-31.0); Mean Platelet Volume 6.4 fL (7.4-10.4); Platelet Count 227 10x3/uL (130-400); Red Blood Cell (RBC) Count 2.44 mill/uL (4.20-5.40); White Blood Cell (WBC) Count 11.4 10x3/uL (4.8-10.8)
[2022-04-06] MEDS: Sertraline 25 MG TAB PO SCH (14:09)
[2022-04-06] MEDS: Aspirin 81 mg Enteric Coated Tablet PO SCH (14:10)
[2022-04-06] MEDS: Gabapentin 100 MG CAP PO SCH (14:11)
[2022-04-06] MEDS: Polyethylene Glycol 3350 17 GM Packet PO SCH (14:16)
[2022-04-06] MEDS ORDERED: Saccharomyces boulardii 250 MG CAP PO SCH (17:45)
[2022-04-06] MEDS: oxyCODONE 5 MG TAB PO PRN (18:06)
[2022-04-06] MEDS: Gabapentin 400 MG CAP PO SCH (20:28)
[2022-04-06] MEDS: Senokot 8.6 MG TAB PO SCH (20:29)
[2022-04-06] MEDS ORDERED: Cefepime 0.5 GM, Admixture Fee 1 EACH in Sodium Chloride 0.9% 100 ML IVPB SCH (21:00)
[2022-04-06] MEDS: HumaLOG 300 UNITS/3 ML VIAL SC PRN (23:07)
[2022-04-07] MEDS: oxyCODONE 5 MG TAB PO PRN (02:59)
[2022-04-07] MEDS: tiZANidine HCl 4 MG TAB PO SCH ×3 (05:07→22:25)
[2022-04-07] MEDS: Levothyroxine Sodium 88 MCG TAB PO SCH (05:07)
[2022-04-07] MEDS: Polyethylene Glycol 3350 17 GM Packet PO SCH (08:56)
[2022-04-07] MEDS: Aspirin 81 mg Enteric Coated Tablet PO SCH (08:57)
[2022-04-07] MEDS: traMADol HCl 50 MG TAB PO SCH (08:57)
[2022-04-07] MEDS: Sertraline 25 MG TAB PO SCH (08:57)
[2022-04-07] MEDS: Calcium Acetate 667 MG CAP PO SCH ×3 (08:57→17:37)
[2022-04-07] MEDS: Furosemide 80 MG TAB PO SCH (08:58)
[2022-04-07] MEDS: Gabapentin 100 MG CAP PO SCH (08:58)
[2022-04-07] MEDS: Carvedilol 6.25 MG TAB PO SCH ×2 (08:58→17:37)
[2022-04-07] MEDS: Saccharomyces boulardii 250 MG CAP PO SCH (08:59)
[2022-04-07] MEDS: HumaLOG 300 UNITS/3 ML VIAL SC PRN ×2 (13:32→17:38)
[2022-04-07] MEDS: Cefepime 0.5 GM, Admixture Fee 1 EACH in Sodium Chloride 0.9% 100 ML IVPB SCH (17:38)
[2022-04-07] MEDS: Gabapentin 400 MG CAP PO SCH (22:24)
[2022-04-07] MEDS: Senokot 8.6 MG TAB PO SCH (22:25)
[2022-04-08] MEDS: tiZANidine HCl 4 MG TAB PO SCH ×3 (06:01→22:15)
[2022-04-08] MEDS: Levothyroxine Sodium 88 MCG TAB PO SCH (06:01)
[2022-04-08] MEDS: Saccharomyces boulardii 250 MG CAP PO SCH (08:01)
[2022-04-08] MEDS: Gabapentin 100 MG CAP PO SCH (08:01)
[2022-04-08] MEDS: Calcium Acetate 667 MG CAP PO SCH ×3 (08:02→18:10)
[2022-04-08] MEDS: Aspirin 81 mg Enteric Coated Tablet PO SCH (08:02)
[2022-04-08] MEDS: Carvedilol 6.25 MG TAB PO SCH ×2 (08:02→18:10)
[2022-04-08] MEDS: Polyethylene Glycol 3350 17 GM Packet PO SCH (08:02)
[2022-04-08] MEDS: Sertraline 25 MG TAB PO SCH (08:03)
[2022-04-08] MEDS: traMADol HCl 50 MG TAB PO SCH (08:03)
[2022-04-08] MEDS ORDERED: Heparin 10,000 UNITS/ 10 ML VIAL ONE (08:26)
[2022-04-08] MEDS ORDERED: Calcium Acetate 667 MG CAP PO SCH (15:00)
[2022-04-08] MEDS: Cefepime 0.5 GM, Admixture Fee 1 EACH in Sodium Chloride 0.9% 100 ML IVPB SCH (18:13)
[2022-04-08] MEDS: oxyCODONE 5 MG TAB PO PRN (22:14)
[2022-04-08] MEDS: Gabapentin 400 MG CAP PO SCH (22:14)
[2022-04-08] MEDS: Senokot 8.6 MG TAB PO SCH (22:15)
[2022-04-09] MEDS: tiZANidine HCl 4 MG TAB PO SCH ×3 (05:37→20:25)
[2022-04-09] MEDS: Levothyroxine Sodium 88 MCG TAB PO SCH (05:37)
[2022-04-09 06:16] LABS: #Basophils 0.1 thou/uL (0.0-0.2); #Eosinphils 0.2 thou/uL (0.0-0.7); #Lymphocytes 1.2 thou/uL (1.20-3.40); #Monocytes 0.9 thou/uL (0.11-0.59); #Neutrophils 6.8 thou/uL (1.40-6.50); %Basophils 0.8 % (0.0-1.0); %Eosinophils 1.9 % (0.0-10.0); %Lymphocytes 12.6 % (21.0-51.0); %Monocytes 10.3 % (0.0-10.0); %Neutrophils 74.4 % (42.0-75.0); Hemoglobin 7.8 g/dL (12.0-16.0); Mean Corpuscular HGB CONC 31.8 g/dL (32.0-36.0); Mean Corpuscular Hemoglobin 32.3 pg (27.0-31.0); Mean Platelet Volume 6.5 fL (7.4-10.4); Platelet Count 219 10x3/uL (130-400); RBC Distribution Width 14.7 % (11.5-14.5); Red Blood Cell (RBC) Count 2.42 mill/uL (4.20-5.40); White Blood Cell (WBC) Count 9.1 10x3/uL (4.8-10.8)
[2022-04-09] MEDS: Sertraline 25 MG TAB PO SCH (09:17)
[2022-04-09] MEDS: Saccharomyces boulardii 250 MG CAP PO SCH (09:17)
[2022-04-09] MEDS: Gabapentin 100 MG CAP PO SCH (09:18)
[2022-04-09] MEDS: Aspirin 81 mg Enteric Coated Tablet PO SCH (09:19)
[2022-04-09] MEDS: Furosemide 80 MG TAB PO SCH (09:19)
[2022-04-09] MEDS: Carvedilol 6.25 MG TAB PO SCH ×2 (09:19→18:34)
[2022-04-09] MEDS: Calcium Acetate 667 MG CAP PO SCH ×3 (09:20→18:34)
[2022-04-09] MEDS: traMADol HCl 50 MG TAB PO SCH (09:20)
[2022-04-09] MEDS: Polyethylene Glycol 3350 17 GM Packet PO SCH (09:21)
[2022-04-09] MEDS: HumaLOG 300 UNITS/3 ML VIAL SC PRN (11:27)
[2022-04-09] MEDS: Cefepime 0.5 GM, Admixture Fee 1 EACH in Sodium Chloride 0.9% 100 ML IVPB SCH (18:33)
[2022-04-09] MEDS: Gabapentin 400 MG CAP PO SCH (20:26)
[2022-04-09] MEDS: Senokot 8.6 MG TAB PO SCH (20:27)
[2022-04-10] MEDS: tiZANidine HCl 4 MG TAB PO SCH ×3 (06:12→21:45)
[2022-04-10] MEDS: Levothyroxine Sodium 88 MCG TAB PO SCH (06:12)
[2022-04-10] MEDS: oxyCODONE 5 MG TAB PO PRN ×2 (07:37→21:46)
[2022-04-10] MEDS: Calcium Acetate 667 MG CAP PO SCH ×3 (08:00→17:52)
[2022-04-10] MEDS: Carvedilol 6.25 MG TAB PO SCH ×2 (08:00→17:53)
[2022-04-10] MEDS: Gabapentin 100 MG CAP PO SCH (09:00)
[2022-04-10] MEDS ORDERED: Heparin 10,000 UNITS/ 10 ML VIAL ONE (10:11)
[2022-04-10] MEDS: traMADol HCl 50 MG TAB PO SCH (13:59)
[2022-04-10] MEDS: Saccharomyces boulardii 250 MG CAP PO SCH (17:52)
[2022-04-10] MEDS: Aspirin 81 mg Enteric Coated Tablet PO SCH (17:52)
[2022-04-10] MEDS: Polyethylene Glycol 3350 17 GM Packet PO SCH (17:53)
[2022-04-10] MEDS: Cefepime 0.5 GM, Admixture Fee 1 EACH in Sodium Chloride 0.9% 100 ML IVPB SCH (17:53)
[2022-04-10] MEDS: HumaLOG 300 UNITS/3 ML VIAL SC PRN (17:53)
[2022-04-10] MEDS: Sertraline 25 MG TAB PO SCH (17:56)
[2022-04-10] MEDS: Senokot 8.6 MG TAB PO SCH (21:00)
[2022-04-10] MEDS: Gabapentin 400 MG CAP PO SCH (21:47)
[2022-04-11] MEDS: tiZANidine HCl 4 MG TAB PO SCH ×3 (06:10→21:45)
[2022-04-11] MEDS: Levothyroxine Sodium 88 MCG TAB PO SCH (06:10)
[2022-04-11] MEDS: Gabapentin 100 MG CAP PO SCH (09:32)
[2022-04-11] MEDS: Carvedilol 6.25 MG TAB PO SCH ×2 (09:32→17:59)
[2022-04-11] MEDS: Calcium Acetate 667 MG CAP PO SCH ×3 (09:32→17:59)
[2022-04-11] MEDS ORDERED: Heparin 10,000 UNITS/ 10 ML VIAL ONE (10:13)
[2022-04-11] MEDS: Sertraline 25 MG TAB PO SCH (15:54)
[2022-04-11] MEDS: Furosemide 80 MG TAB PO SCH (15:55)
[2022-04-11] MEDS: Aspirin 81 mg Enteric Coated Tablet PO SCH (15:55)
[2022-04-11] MEDS: traMADol HCl 50 MG TAB PO SCH (15:55)
[2022-04-11] MEDS: Saccharomyces boulardii 250 MG CAP PO SCH (15:55)
[2022-04-11] MEDS: Polyethylene Glycol 3350 17 GM Packet PO SCH (15:55)
[2022-04-11] MEDS: HumaLOG 300 UNITS/3 ML VIAL SC PRN (17:59)
[2022-04-11] MEDS: Cefepime 0.5 GM, Admixture Fee 1 EACH in Sodium Chloride 0.9% 100 ML IVPB SCH (17:59)
[2022-04-11] MEDS: Senokot 8.6 MG TAB PO SCH (20:37)
[2022-04-11] MEDS: Gabapentin 400 MG CAP PO SCH (20:37)
[2022-04-12] MEDS: Levothyroxine Sodium 88 MCG TAB PO SCH (05:04)
[2022-04-12] MEDS: tiZANidine HCl 4 MG TAB PO SCH ×3 (05:04→21:47)
[2022-04-12 07:52] LABS: Anion Gap 10 mmol/L (10-20); BUN (Urea Nitrogen) 34 mg/dL (9.8-20.1); Calc. Creatinine Clearance 20 mL/min (70-130); Carbon Dioxide 30 mmol/L (23-31); Chloride 95 mmol/L (98-107); Estimated GFR 15; Glucose 121 mg/dL (83-110); Potassium 4.3 mmol/L (3.5-5.1); Sodium 131 mmol/L (136-145)
[2022-04-12] MEDS: Calcium Acetate 667 MG CAP PO SCH ×3 (10:24→17:49)
[2022-04-12] MEDS: Polyethylene Glycol 3350 17 GM Packet PO SCH (10:24)
[2022-04-12] MEDS: Aspirin 81 mg Enteric Coated Tablet PO SCH (10:25)
[2022-04-12] MEDS: Sertraline 25 MG TAB PO SCH (10:25)
[2022-04-12] MEDS: Saccharomyces boulardii 250 MG CAP PO SCH (10:25)
[2022-04-12] MEDS: Furosemide 80 MG TAB PO SCH (10:25)
[2022-04-12] MEDS: traMADol HCl 50 MG TAB PO SCH (10:26)
[2022-04-12] MEDS: Gabapentin 100 MG CAP PO SCH (10:26)
[2022-04-12] MEDS: Carvedilol 6.25 MG TAB PO SCH ×2 (10:26→17:49)
[2022-04-12] MEDS: Cefepime 0.5 GM, Admixture Fee 1 EACH in Sodium Chloride 0.9% 100 ML IVPB SCH (17:49)
[2022-04-12] MEDS: HumaLOG 300 UNITS/3 ML VIAL SC PRN (17:49)
[2022-04-12] MEDS: Senokot 8.6 MG TAB PO SCH (21:36)
[2022-04-12] MEDS: Gabapentin 400 MG CAP PO SCH (21:37)
[2022-04-12] MEDS: EPOETIN ALFA-EPBX (ESRD) 10,000 UNIT/ML VIAL SC SCH (21:46)
[2022-04-12] MEDS: oxyCODONE 5 MG TAB PO PRN (23:57)
[2022-04-13] MEDS: Levothyroxine Sodium 88 MCG TAB PO SCH (05:26)
[2022-04-13] MEDS: tiZANidine HCl 4 MG TAB PO SCH ×3 (05:26→20:23)
[2022-04-13] MEDS: Ipratropium/Albuterol 3 ML NEB NEB PRN (05:27)
[2022-04-13] MEDS: Aspirin 81 mg Enteric Coated Tablet PO SCH (09:03)
[2022-04-13] MEDS: Saccharomyces boulardii 250 MG CAP PO SCH (09:03)
[2022-04-13] MEDS: Calcium Acetate 667 MG CAP PO SCH ×3 (09:03→16:18)
[2022-04-13] MEDS: Sertraline 25 MG TAB PO SCH (09:04)
[2022-04-13] MEDS: Carvedilol 6.25 MG TAB PO SCH ×2 (09:04→16:18)
[2022-04-13] MEDS: Polyethylene Glycol 3350 17 GM Packet PO SCH (09:05)
[2022-04-13] MEDS: Gabapentin 100 MG CAP PO SCH (09:05)
[2022-04-13] MEDS: traMADol HCl 50 MG TAB PO SCH (09:06)
[2022-04-13] MEDS ORDERED: Heparin 10,000 UNITS/ 10 ML VIAL ONE (10:30)
[2022-04-13] MEDS: Cefepime 0.5 GM, Admixture Fee 1 EACH in Sodium Chloride 0.9% 100 ML IVPB SCH (16:20)
[2022-04-13] MEDS: Senokot 8.6 MG TAB PO SCH (20:23)
[2022-04-13] MEDS: Gabapentin 400 MG CAP PO SCH (20:23)
[2022-04-13] MEDS: oxyCODONE 5 MG TAB PO PRN (23:59)
[2022-04-14] MEDS: Ipratropium/Albuterol 3 ML NEB NEB PRN (01:38)
[2022-04-14] MEDS: Levothyroxine Sodium 88 MCG TAB PO SCH (06:22)
[2022-04-14] MEDS: tiZANidine HCl 4 MG TAB PO SCH ×2 (06:23→14:12)
[2022-04-14] MEDS: Aspirin 81 mg Enteric Coated Tablet PO SCH (09:19)
[2022-04-14] MEDS: Sertraline 25 MG TAB PO SCH (09:19)
[2022-04-14] MEDS: Saccharomyces boulardii 250 MG CAP PO SCH (09:20)
[2022-04-14] MEDS: Calcium Acetate 667 MG CAP PO SCH ×2 (09:20→13:03)
[2022-04-14] MEDS: Gabapentin 100 MG CAP PO SCH (09:20)
[2022-04-14] MEDS: Carvedilol 6.25 MG TAB PO SCH (09:20)
[2022-04-14] MEDS: traMADol HCl 50 MG TAB PO SCH (09:21)
[2022-04-14] MEDS: Polyethylene Glycol 3350 17 GM Packet PO SCH (09:22)
[2022-04-14] MEDS: Furosemide 80 MG TAB PO SCH (09:22)
[2022-04-14 12:22] VITALS: BP 149/73; TEMP 96.8
[2022-04-14] MEDS: HumaLOG 300 UNITS/3 ML VIAL SC PRN (13:02)
[2022-04-14] MEDS ORDERED: Calcium Carbonate 500 MG ChewTAB PO PRN (13:02)
== END 2022-04-14 16:45 | DRG 628 ==
LOC: ERS 11:07 → 2NO 14:59 → SURG A 03-21 13:32
PROVIDERS: ADMIT Internal Medicine; ATTEND Internal Medicine
PROC: 5A1D70Z Performance of Urinary Filtration, Intermittent, Less than 6 Hours Per Day (ICD-10-PCS; 2022-03-20)
PROC: 06HY33Z Insertion of Infusion Device into Lower Vein, Percutaneous Approach (ICD-10-PCS; 2022-03-27)
PROC: 02PYX3Z Removal of Infusion Device from Great Vessel, External Approach (ICD-10-PCS; 2022-03-27)
PROC: B51W1ZZ Fluoroscopy of Dialysis Shunt/Fistula using Low Osmolar Contrast (ICD-10-PCS; 2022-03-31)
PROC: 031B0ZF Bypass Right Radial Artery to Lower Arm Vein, Open Approach (ICD-10-PCS; principal; 2022-04-01)
PROC: B31J1ZZ Fluoroscopy of Left Upper Extremity Arteries using Low Osmolar Contrast (ICD-10-PCS; 2022-04-01)
DX: E11.69 Type 2 diabetes mellitus with other specified complication (principal); L89.613 Pressure ulcer of right heel, stage 3; M86.8X7 Other osteomyelitis, ankle and foot; E87.1 Hypo-osmolality and hyponatremia; J96.11 Chronic respiratory failure with hypoxia; I13.2 Hypertensive heart and chronic kidney disease with heart failure and with stage 5 chronic kidney disease, or end stage renal disease; I48.11 Longstanding persistent atrial fibrillation; T82.858A Stenosis of other vascular prosthetic devices, implants and grafts, initial encounter; N18.6 End stage renal disease; Z20.822 Contact with and (suspected) exposure to COVID-19; E11.621 Type 2 diabetes mellitus with foot ulcer; Y83.2 Surgical operation with anastomosis, bypass or graft as the cause of abnormal reaction of the patient, or of later complication, without mention of misadventure at the time of the procedure; I50.9 Heart failure, unspecified; E11.51 Type 2 diabetes mellitus with diabetic peripheral angiopathy without gangrene; F39 Unspecified mood [affective] disorder; E87.5 Hyperkalemia; D63.1 Anemia in chronic kidney disease; E03.9 Hypothyroidism, unspecified; E11.22 Type 2 diabetes mellitus with diabetic chronic kidney disease; Z99.81 Dependence on supplemental oxygen; Z99.2 Dependence on renal dialysis; Z95.818 Presence of other cardiac implants and grafts; Z88.8 Allergy status to other drugs, medicaments and biological substances; Z88.1 Allergy status to other antibiotic agents; Z91.041 Radiographic dye allergy status; Z79.899 Other long term (current) drug therapy; Z79.82 Long term (current) use of aspirin; Z79.890 Hormone replacement therapy; Z79.4 Long term (current) use of insulin; Z90.49 Acquired absence of other specified parts of digestive tract; Z90.710 Acquired absence of both cervix and uterus; Z90.89 Acquired absence of other organs; S52.611G Displaced fracture of right ulna styloid process, subsequent encounter for closed fracture with delayed healing; S52.571G Other intraarticular fracture of lower end of right radius, subsequent encounter for closed fracture with delayed healing; W18.39XD Other fall on same level, subsequent encounter
CPT/HCPCS: 36415; 36416; 36901; 51701; 80048; 80053; 80202; 81003; 81015; 83605; 83690; 84443; 85025; 85379; 85652; 86140; 86704; 87040; 87081; 87086; 87811; 90935; 93005; 93970; 94640; 96374; 97139; C1776; G0257; J0171; J0692; J1200; J1642; J1644; J1815; J2001; J2272; J2405; J2704; J2720; J2930; J3370; J3490; J7512; J7620; Q5105; Q9967; S0020; U0003; U0005